=== PATIENT | male | born 1980 | race Caucasian/White ===

== ENCOUNTER 2024-08-06 17:36 | Observation (INO) | payer OTHER ==
[~2024-08-06] VITALS: Ht 190.5 cm; Wt 89.8 kg
[2024-08-06] MEDS ORDERED: LORazepam 1 MG Tab PO ONE (18:25)
[2024-08-06] MEDS ORDERED: HyDROXyzine HCl 25 MG Tab PO ONE (20:45)
[2024-08-06] MEDS ORDERED: Acetaminophen 500 MG Tab PO ONE (23:50)
[2024-08-07] MEDS ORDERED: QUEtiapine Fumarate 50 MG TAB PO ONE ×2 (00:15→00:25)
[2024-08-07] MEDS ORDERED: OLANZapine ODT 5 MG Tab MM ONE (01:15)
[2024-08-07 08:59] LABS: Source, Urine Clean Catch
[2024-08-07 09:32] LABS: Appearance, Urine Cloudy (Clear); Bilirubin, Urine Neg (Neg); Blood, Urine 1+ (Neg); Color, Urine Yellow (P-Yellow); Glucose Qualitative, Urine Neg (Neg); Ketones, Urine 4+ (Neg); Leukocyte Esterase, Urine Neg (Neg); Nitrite, Urine Neg (Neg); Protein, Urine 1+ (Neg); Specific Gravity, Urine 1.025 (1.003-1.022); Urobilinogen, Urine NORM (Normal)
[2024-08-07 09:35] LABS: BASOPHILS ABSOLUTE AUTO 0.04 K/mm3 (0.00-0.23); BASOPHILS PERCENT AUTO 1 % (0-2); EOSINOPHILS ABSOLUTE AUTO 0.13 K/mm3 (0.00-0.68); EOSINOPHILS PERCENT AUTO 2 % (0-6); Hematocrit 43.6 % (37.0-53.0); Hemoglobin 15.3 g/dL (13.5-17.5); IMMATURE GRAN ABSOLUTE AUTO 0.03 K/mm3 (0.00-0.10); IMMATURE GRAN PERCENT AUTO 1 % (0-1); LYMPHOCYTES ABSOLUTE AUTO 1.79 K/mm3 (0.84-5.20); LYMPHOCYTES PERCENT AUTO 29 % (21-46); MONOCYTES ABSOLUTE AUTO 0.46 K/mm3 (0.16-1.47); MONOCYTES PERCENT AUTO 7 % (4-13); Mean Corpuscular HGB 29.7 pg (26.0-34.0); Mean Corpuscular HGB Conc 35.1 g/dL (31.5-36.5); Mean Corpuscular Volume 85 fL (80-100); Mean Platelet Volume 9.6 fL (9.1-12.4); NEUTROPHILS PERCENT AUTO 61 % (41-73); Platelet Count 269 K/mm3 (150-400); RDW Coefficient Variation 11.8 % (11.7-14.2); Red Blood Cell Count 5.16 M/mm3 (4.30-5.90); White Blood Cell Count 6.25 K/mm3 (4.00-11.30)
[2024-08-07 09:50] LABS: Bacteria Few /hpf; Red Blood Cells, Urine 0-2 /hpf (0-2); Squamous Epithelial Cells Few /hpf (Few)
[2024-08-07 09:52] LABS: U Amphetamine Screen Not Detected; U Barbituate Screen Not Detected; U Benzodiazapine Screen DETECTED; U Buprenorphine Screen Not Detected; U Cannabinoids Screen DETECTED; U Cocaine Screen Not Detected; U Methadone Screen Not Detected; U Methamphetamine Screen Not Detected; U Opiates Screen Not Detected; U Oxycodone Screen Not Detected; U Phencyclidine Screen Not Detected
[2024-08-07 09:56] LABS: Ethanol (Alcohol), Blood, Med <3 mg/dL; Salicylate <1.7 mg/dL (2.8-20.0)
[2024-08-07 10:03] LABS: Alanine Aminotransfer (ALT/SGP 27 U/L (12-78); Albumin, Blood 4.1 g/dL (3.4-5.0); Albumin/Globulin Ratio 1.1 (0.8-1.8); Alk Phos 70 U/L (50-136); Anion Gap 8 mmol/L (3-11); Aspartate Aminotrans (AST/SGOT 20 U/L (12-37); Bilirubin, Total 0.9 mg/dL (0.1-1.0); Blood Urea Nitrogen 13 mg/dL (8-24); Bun/Creatinine Ratio 14.7 (12.0-20.0); CO2, Blood 27 mmol/L (21-32); Calcium, Blood 9.2 mg/dL (8.5-10.1); Chloride, Blood 105 mmol/L (98-108); Creatinine, Blood 0.89 mg/dL (0.60-1.20); Globulin, Blood 3.6 g/dL (2.2-4.0); Glomerular Filtration Rate 108 (60-); Glucose, Blood 120 mg/dL (70-99); Potassium, Blood 3.4 mmol/L (3.5-5.5); Sodium, Blood 137 mmol/L (136-145); Total Protein, Blood 7.7 g/dL (6.4-8.2)
[2024-08-07 10:04] LABS: Acetaminophen, Random <2.0 ug/mL (10.0-30.0)
== END 2024-08-07 13:19 | disposition other institution (70) ==
LOC: ER 17:36 → EOR 17:37
PROVIDERS: Student in an Organized Health Care Education/Training Program; ADMIT Student in an Organized Health Care Education/Training Program
DX: F32.9 Major depressive disorder, single episode, unspecified (principal); R45.851 Suicidal ideations; U07.1 COVID-19; F43.10 Post-traumatic stress disorder, unspecified
CPT/HCPCS: 80053; 80320; 81001; 85025; 87086; 99285; A9270; G0378; G0480

== ENCOUNTER 2024-08-07 10:09 | Inpatient (IN) | payer OTHER ==
[~2024-08-07] VITALS: Ht 190.5 cm; Wt 87.8 kg
[2024-08-07] MEDS ORDERED: FLU VACC TS2024-25(6MOS UP)/PF 45 MCG/0.5 ML SYRINGE IM SCH (13:05)
[2024-08-07] MEDS ORDERED: LORazepam 2 MG Tab PO PRN (13:05)
[2024-08-07] MEDS ORDERED: Ibuprofen 600 MG Tab PO PRN (13:05)
[2024-08-07] MEDS ORDERED: Ondansetron 4 MG SoluTab MM PRN (13:10)
[2024-08-07] MEDS ORDERED: Polyethylene Glycol 3350 17 gm PO PRN (13:10)
[2024-08-07] MEDS ORDERED: DiphenhydrAMINE HCl 50 MG/ML 1ML Vial IV PRN (13:10)
[2024-08-07] MEDS ORDERED: DiphenhydrAMINE HCl 50 MG Cap PO PRN (13:10)
[2024-08-07] MEDS ORDERED: Calcium Carbonate 500 MG Tab Chew PO PRN (13:10)
[2024-08-07] MEDS ORDERED: OLANZapine ODT 10 MG Tab MM PRN (13:10)
[2024-08-07] MEDS ORDERED: TraZODone HCl 50 MG Tab PO PRN (13:10)
[2024-08-07 13:15] VITALS: BP 136/104
[2024-08-07] MEDS ORDERED: Acetaminophen 325 MG TABLET PO PRN (13:15)
[2024-08-07] MEDS ORDERED: Aluminum Hydroxide 320MG/5ML 473 ML PO PRN (13:15)
[2024-08-07] MEDS ORDERED: Melatonin 3 MG Tab PO PRN (13:15)
[2024-08-07 13:29] VITALS: BP 136/104
--- NOTE | 2024-08-07 14:52 | NUR ---
ADMISSION NOTE: PT ARRIVES TO [facility] FROM [facility] ED. HE IS A&O X4, COOPERATIVE, AND DENIES HI/SI/AH/VH. BELONGINGS WERE OBTAINED BY SONJA CLAY. 2 RN SKIN CHECK PERFORMED BY THIS RN AND HENNY HAIRSTON, SKIN WAS CLEAR BESIDES SOME SMALL AMOUNT OF CHRONIC BACK ACHNE. HE DID HAVE SOME FOOT ODOR, OF WHICH HE STATES HE HAS NOT HAD A SHOWER IN A WHILE. PT WAS PLACED IN [facility] SCRUBS, ROBE, AND PLACED IN SKID PROOF SOCKS. DURING ADMISSION ASSESSMENT HE STATES HE IS HERE "BECAUSE I NEED SOME HELP." YESTERDAY HE WAS HAVING SI FOR THE FIRST TIME EVER [facility]. HE SAYS THEY SENT HIM TO [facility] D/T HIS RECENT DX OF COVID+. HE ARRIVED TO ED LAST PM. HE DENIES HAVING A PLAN. HE C/O INSOMNIA WITH LESS THAN AN HOUR OF SLEEP PER NIGHT FOR THE LAST 7 OR SO DAYS. FIRST NIGHT OF SLEEP WAS IN ED LAST NOC AFTER MEDICATIONS. PT ALSO C/O DECREASED APPETITE WITH 20 LB WEIGHT LOSS. HE STATES LAST BM WAS ABOUT 1 WEEK AGO AND WOULD LIKE SOMETHIG FOR THAT. PT WAS CALM AND COOPERATIVE DURING INTAKE. HE WAS ORIENTED TO HIS ROOM AND THE UNIT. HE IMMEDIATELY REQUESTED TOWELS FOR A SHOWER AND BATHED SELF INDEPENDENTLY.
[2024-08-07] MEDS ORDERED: BusPIRone HCl 5 MG Tab PO SCH (21:00)
[2024-08-07] MEDS ORDERED: TraZODone HCl 100 MG Tab PO SCH (21:00)
[2024-08-07 22:04] VITALS: BP 122/89
--- NOTE | 2024-08-07 22:30 | NUR ---
Shift Assessment Note Received Pt at 1900. Pt denied SI/HI/AVH. Endorsed anxiety 6/10; endorsed depression /10. Mood sad, affect calm. Appropriate eye contact. Med compliant; received PRNs for sleeplessness. Discussed meds with Pt as they were newly ordered; he consented to receiving them, and confirmed he was NKDA. Endorsed headache /, and received PRN (see MAR,) which was effective in that it permitted Pt to rest. Participated in evening wrap-up group; ate 100% of snack. Interacted appropriately with peers and staff. Pt retired to bed shortly after med pass without complications. Ko: Continue to provide safe, therapeutic environment in which to work on TP goals. Continue discharge planning.
--- NOTE | 2024-08-08 04:40 | NUR ---
Shift Summary Pt was in the dayroom watching tv at the start of shift. Discussed plan for the evening, with which he was in agreement. He participated fully in assessment (denied SI/HI/AVH.) Med compliant; received PRNs (see MAR) for sleeplessness and headache. He participated in evening wrap-up group; ate 100$ of snack. He watched tv after snack until he retired to bed. He awoke approximately 2 hours after retiring to bed, stating that he could not sleep in a room with a roommate. He stated he had advised staff of such and had been told he would be accommodated. A private room was not available; he refused headphones, ear plugs, and additional PRNs. He was willing to sleep on the floor of the sensory room, and remained there for the duration of the night. He was noted to have even, unlabored respirations throughout the night. No other complications.
[2024-08-08 08:07] VITALS: BP 120/98
[2024-08-08] MEDS ORDERED: Multivitamins 1 Tab PO SCH (09:00)
[2024-08-08] MEDS ORDERED: TRIAMCINOLONE ACET 0.1% TOP ONE (16:50)
--- NOTE | 2024-08-08 17:06 | NUR ---
SHIFT SUMMARY PT HAS BEEN UP SINCE START OF DAY SHIFT, HE HAS PARTICIPATED IN ALL GROUPS AND SPENT TIME IN THE GROUP ROOM WATCHING TV WITH OTHER PT'S WHEN TV WAS AVAILABLE. HE DID TAKE APPROX 1 HR NAP IN THE SENSORY ROOM LYING ON THE FARR BAG. HE HAS SHARED, AFTER HAVING A DIFFICULT TIME LAST NIGHT TRYING TO SLEEP WITH SOMEONE ELSE IN HIS ROOM, THAT HE HAS NEVER BEEN ABLE TO SLEEP WITH ANYONE IN HIS ROOM. STATED THAT EVEN WHEN HE HAD TO SLEEP IN A DIFFERENT LOCATION THAN HIS . PT HAS BEEN COOPERATIVE AND APPROPRIATE THROUGHOUT THE DAY, HAS DENIED SI/HI/AVH, POC TO CONTINUE, NEW MEDICATIONS ORDERED ARE REMRON AND KENALOG CREAM FOR HIS BELATERAL EARS THAT ARE INFLAMED, RED WITH PRURITIS, PT SAFETY HAS BEEN ENSURED TODAY WITH Q15 SAFETY CHECKS.
[2024-08-08] MEDS ORDERED: TRIAMCINOLONE ACET 0.1% TOP PRN (18:10)
[2024-08-08 20:38] VITALS: BP 133/102
[2024-08-08] MEDS ORDERED: Mirtazapine 15 MG Tab PO SCH (21:00)
--- NOTE | 2024-08-09 03:10 | NUR ---
SHIFT SUMMARY: ASSUMED CARE FROM PRIOR SHIFT. PATIENT IS A/OX4, ABLE TO VOICE NEEDS AND HAVE MEANINGFUL CONVERSATION. HE DENIES SI, VH AND AH. HE IS DEPRESSED BY HIS OWN ADMISSION. HE IS COMPLIANT WITH MEDICATIONS, CARE, POC AND ASSESSMENT. HE IS SOCIALZING APPROPRIATELY WITH STAFF AND OTHER PATIENTS. HE PARTICIPATES IN EVENING GROUP AND SNACK TIME. HE GOES TO BED WITHOUT ENCOURAGEMENT. HE IS ALREADY PLANNING A SAFE DISCHARGE FOR HIMSELF. WE WILL CONTINUE TO MONITOR EVERY 15 MIN FOR COMFORT AND SAFETY. NO NOED ISSUES OR BEHAVIORS. PATIENT CURRENTLY SLEEPING.
--- NOTE | 2024-08-09 05:39 | NUR ---
PATIENT SLEPT THROUGH THE NIGHT. NO NOTED ISSUES OR BEHAVIORS. WE WILL CONTINUE TO MONITOR EVERY 15MIN FOR SAFETY AND COMFORT.
[2024-08-09 08:00] VITALS: BP 127/86
--- NOTE | 2024-08-09 17:17 | NUR ---
SHIFT SUMMARY PT HAS BEEN UP ALL SHIFT, HAS HAD ALL MEALS AND PARTICIPATED IN ALL GROUPS. HE IS VERY APPROPRIATE AND ENGAGED IN [place]. HAS DENIED SI/HI/AVH THROUGH OUT THE DAY, COMPLIANT WITH ALL MEDICATION, SLEPT WELL LAST NIGHT. LOOKING FORWARD TO HIS D/C HOME IN THE [facility] NEXT 2 DAYS, HE SPENT TIME VISITING WITH PIETRO BENITEZ TODAY, ELI STATES HE FEELS PT WILL BE ABLE TO DC WITH [facility] IN TOMORROW OR . PT HAS HAD CONTINUOUS Q15 MINUTE MONITORING ALL SHIFT TO ENSURE HIS SAFETY.
[2024-08-09 20:58] VITALS: BP 150/88
[2024-08-09] MEDS ORDERED: BusPIRone HCl 10 MG Tab PO SCH (21:00)
--- NOTE | 2024-08-10 04:17 | NUR ---
SHIFT SUMMARY PT PRESENT IN GROUP ROOM, WATCHING TV AND INTERACTING WITH PEERS AND STAFF AT THE BEGINNING OF MY SHIFT. PT IS A&O X4, DENIES ANY SI, HI OR HALLUCIANTIONS. PT STATES HE IS FEELING BETTER AFTER GETTING SLEEP. PT HAD EVENING SNACK. HE WAS COMPLIANT WITH MEDICATIONS. HE SHOWERED PRIOR TO GOING TO BED AND HAS APPEARED TO BE SLEEPING THROUGHOUT THE NIGHT. Q15 MINUTE CHECKS TO CONTINUE PER UNIT PROTOCOL.
[2024-08-10 08:05] VITALS: BP 141/107
[2024-08-10 08:30] LABS: CHOL/HDL RATIO 4.2; Cholesterol 151 mg/dL (50-200); HDL Cholesterol 36 mg/dL (>39); LDL/HDL RATIO 2.2; Low Density Lipoprotein Chol 81 mg/dL (0-110); Triglycerides 172 mg/dL (30-160); Very Low Density Lipoprot Chol 34 mg/dL (6-32)
[2024-08-10 12:24] VITALS: BP 150/110
[2024-08-10] MEDS ORDERED: AmLODIPine Besylate 5 MG Tab PO SCH (15:00)
[2024-08-10 17:10] VITALS: BP 137/99
--- NOTE | 2024-08-10 17:35 | NUR ---
SHIFT SUMMARY PT AxOx4. PLEASANT AND COOPERATIVE WITH CARE. PT DENIES SI/HI AND AVTH THIS SHIFT. PT HAS BEEN FOLLOWING CARE PLAN INCLUDING TAKING MEDS PRESCRIBED, ATTENDING GROUPS AND MINGLING APPROPRIATELY WITH PEERS/STAFF ON UNIT. PT REPORTS HEADACHE THIS AM. PT MEDICATED x2 TODAY WITH REPORTED MILD-MODERATE RELIEF. PT ALSO HAD HOSPITALIST CONSULT TODAY FOR HYPERTENSION. PT STARTED ON BP MEDS THIS AFTERNOON. PT IS CURRENTLY EXPECTING TO DC IN THE NEXT COUPLE DAYS. CURRENT PLAN IS FOR PATIENT TO [facility].
[2024-08-10 20:22] VITALS: BP 146/98
--- NOTE | 2024-08-10 22:27 | NUR ---
Shift Assessment Summary Received Pt at 1900. Denied SI/HI/AVH. Denied depression; endorsed anxiety 11/11. Mood and affect stable. Endorsed headache pain 01/11, and received PRN (see MAR) which only minimally effective, so he received another PRN (see MAR) which was effective and reduced his pain sufficiently to rest. Denied other physical complaints. Med compliant; received PRN (see MAR) for sleeplessness and pain (see above.) Pt participated in evening group; ate 100% of snack. Pt interacted appropriatly with peers and staff. Retired to bed without complications.
--- NOTE | 2024-08-11 03:37 | NUR ---
Shift Summary Pt was in the hallway at the start of shift, waiting to request med for BOWEN. He received PRN (see MAR,) then retired to his room to rest. Participated fully in assessment (denied SI/HI/AVH.) Med compliant; received PRNs (see MAR) for sleeplessness and heacahce. Participated in evening group; ate 100% of snack. Watched tv after snack, then retired to bed for the evening without complication. Rested throughout the night with resps even and unlabored. Plan: Contiue to provide safe, therapeutic environment in which to work on TP goals. Continue discharge planning.
[2024-08-11 08:16] VITALS: BP 141/102
[2024-08-11] MEDS ORDERED: AmLODIPine Besylate 5 MG Tab PO SCH (09:00)
--- NOTE | 2024-08-11 17:27 | NUR ---
SHIFT NOTE: PT WAS UP IN HALLWAY CHAIR THIS AM PRIOR TO BREAKFAST, TEARFUL AND WRAPPED IN A BLANKET. HE STATES HE IS JUST SO SAD BECAUSE HE MISSES HIS SON AND HE IS NOT ABLE TO SPEAK TO SEE HIM AND HE HAS NEVER BEEN AWAY FROM HIM THIS LONG. HE REFUSED TO GO TO DAY ROOM, BED ROOM, OR SENSORY ROOM TO BE ALONE AND DECOMPRESS. MD WAS NOTIFIED OF NO PRN FOR ANXIETY WAS ORDERED AT THIS TIME. NO NEW MED ORDERED D/T PT MAY D/C HOME. PT WAS MEDICATED FOR BOWEN THIS SHIFT. HIS NORVASC WAS INCREASED THIS AM. PT WAS NOT ABLE TO D/C HOME TODAY D/T NO RIDE AVAILABLE. HE IS PLANNING TO D/C TOMORROW AND TO [facility] WITH [facility] FOR [facility] AND MEDS. MOTHER IS TO BE HERE TOMORROW AROUND 11 AM. PT WAS COMPLIANT WITH ALL MEALS, ACTIVITIES, GROUPS, AND MEDS THIS SHIFT. DENIES SI/HI/AH/[facility] THIS SHIFT.
[2024-08-11 22:26] VITALS: BP 142/106
--- NOTE | 2024-08-12 04:49 | NUR ---
NOC SHIFT SUMMARY Engaged in tx and compliant with meds. PRN Tylenol given with scheduled HS meds for enduring BOWEN. Socializing and watching movie with peers in the evening. Appropriate behavior and interactions observed. Pt awoke with BOWEN pain shortly after midnight. Discussed PRN options. Pt received ibuprofen, Benadryl, and trazodone. Went back to bed, sleeping intermittently. Pt states that BOWEN has been ongoing for approx 3d now. Hx of migraines and Rx for Imitrex (not active). Per report from previous shift, HTN was thought to be a possible trigger, however pt states that he has had a long hx of HTN and believes that BOWEN has another cause. Denies other concerns. Mood appropriate. Plan to discharge at 11AM with mom. [facility].
[2024-08-12] MEDS ORDERED: AMLO10 PO (09:54)
[2024-08-12] MEDS ORDERED: BUSP10 PO (09:54)
[2024-08-12] MEDS ORDERED: TRAZ100 PO (09:54)
[2024-08-12] MEDS ORDERED: MIRT15 (09:54)
--- NOTE | 2024-08-12 10:55 | NUR ---
DISCHARGE NOTE: DISCUSSED DISCHARGE PACKET WITH PT AND PROVIDED PT WITH COPY OF PACKET AND HAND WRITTEN RX'S TO TAKE TO THE [facility] TO HAVE FILLED. DISCUSSED SAFETY PLAN WITH PT AND GAVE HIM A COPY OF HIS SAFETY PLAN. PT IS TO GO DIRECTLY TO THE [facility] IN [place], OR TO ESTABLISH WITH A [facility] PCP FOR F/U AND MENTAL HEALTH CARE PROVIDER. PT DEMONSTRATED UNDERSTANDING OF ALL D/C INSTRUCTIONS AND DISCUSSIONS. PT'S MOTHER ARRIVED TO [facility] TO [facility] AND [facility]. BELONGINGS WERE GIVEN TO PT BY [facility] PRIOR TO D/C HOME.
== END 2024-08-12 11:00 | disposition home or self-care (01) | DRG 880 ==
LOC: BHU 10:09
PROVIDERS: Student in an Organized Health Care Education/Training Program; ADMIT Psychiatry & Neurology Psychiatry
DX: F41.1 Generalized anxiety disorder (principal); R45.851 Suicidal ideations; I10 Essential (primary) hypertension; F43.10 Post-traumatic stress disorder, unspecified; G47.00 Insomnia, unspecified; Z87.891 Personal history of nicotine dependence; Z86.16 Personal history of COVID-19
CPT/HCPCS: 80061; 83036; A9270